=== PATIENT | female | born 1985 | race African-American/Black ===

== ENCOUNTER 2018-05-13 14:00 | Inpatient (IN) | payer BC, OTHER ==
[2018-05-16] MEDS ORDERED: morphine SULFATE/Preservative Free 0.5 MG/ML (1cc Syringe) ONE (08:17)
[2018-05-16] MEDS ORDERED: BUPIVACAINE 0.75% IN DEXTROSE/PF 2ML AMPULE NR ONE (08:24)
--- NOTE | 2018-05-16 09:25 | HP ---
Past Medical History - Primary Care Physician PCP:: Antonio Pinto - Admission Chief Complaint: 33yo P0 with at EGA 39w3d and large fibroids with unstable lie admitted for preimary C/S. History of Present Illness: Pt with multiple large fibroids, including a large ABRAHAM anterior fibroid, preventing descent. Prior h/o anemia- corrected. 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 DIRECTOR: No: Alzheimer's, CVA, Dementia, Migraine, Multiple Sclerosis, Peripheral Neuropathy, Parkinson's, Seizure, Syncope, TIA, Vertigo, Other Cardiovascular: No: AFIB, Aneurysm, Aortic Insufficiency, Aortic Stenosis, CAD, CHF, Deep Vein Thrombosis, HTN, Hyperlipdemia, MD, Mitral Insufficiency, Mitral Stenosis, Murmur, Pulmonary Hypertension, Other Pulmonary: No: Asthma, Bronchitis, Cancer, COPD, O2 Dependent, Pneumonia, Previously Intubated, Pulmonary Embolus, Pulmonary Fibrosis, Sleep Apnea, Other Gastrointestinal: No: Ascites, Cancer, Constipation, Crohn's Disease, Diverticulitis, Diverticulosis, Esophageal Varices, Gastritis, GERD, GI Bleed, Hemorrhoids, Hiatal Hernia, Inflamatory Bowel Disease, Irritable Bowel Disease, Pancreatitis, Peptic Ulcer Disease, Ulcerative Colitis, Other Hepatobiliary: No: Cirrhosis, Cholelithiasis, Cholecystitis, Choledocholithiasis , Hepatitis A, Hepatitis B, Hepatitis C, Other Renal/: No: Renal Failure, Renal Inusuff, BPH, Cancer, Hematuria, Hemodialysis , Neurogenic Bladder, Renal Calculi, UTI, Other Reproductive: Yes: Fibroids ...Para: 0 ... Weeks Gestation by Dates: 39.3 Heme/Onc: Yes: Anemia Infectious Disease: No: AIDS, C-Diff, Herpes Zoster, HIV, MRSA, STD's, Tuberculosis, VREF, Other Psych: No: Addictions, Anxiety, Bipolar, Depression, Panic, Psychosis, Schizophrenia, Other Musculoskeletal: No: Bursitis, Chronic low back pain, Hemiparesis, Hemiplegia, Osteoarthritis, Paraplegia, Other Rheumatology: No: Fibromyalgia, Gout, Lupus, Rheumatoid Arthritis, Sarcoidosis, Vasculitis, Other ENT: No: Allergic Rhinitis, Sinusitis, Other Endocrine: No: Manor's Disease, Ceci's Disease, Diabetes Insipidus, Diabetes Mellitus, Hyperparathyroidism, Hyperthyroidism, Hypothyroidism, Osteopenia, SIADH, Other Dermatology: No: Basal Cell, Cellulitis, Eczema, Melanoma, Psoriasis, Squamous Cell, Other - Past Surgical History Hx Myomectomy: No Hx Transabdominal Cerclage: No Additional Surgical History: Laparoscopic left ovarian cystectomy, ablation of endometrium, NINA (10/2014). 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 History of Recent Travel: No Home Medications - Allergies Allergies/Adverse Reactions: Allergies Allergy/AdvReac Type Severity Reaction Status Date / Time soy Allergy Severe THROAT ITCH Verified 02/17/18 10:39 NUTS Allergy Severe SWELLING, Uncoded 02/17/18 10:39 DIFF BREATHING - Home Medications Home Medications: Ambulatory Orders Iron Sucrose Injection [Venofer Injection -] 1 infus.bot IVPB WEEKLY 02/17/18 Vitamins (Sjr) - 1 tab PO DAILY 02/17/18 Family Disease History - Family Disease History Family History: Unremarkable Review of Systems - Review of Systems Constitutional: reports: No Symptoms Eyes: reports: No Symptoms HENT: reports: No Symptoms Neck: reports: No Symptoms Cardiovascular: reports: No Symptoms Respiratory: reports: No Symptoms Gastrointestinal: reports: No Symptoms Genitourinary: reports: No Symptoms Breasts: reports: No Symptoms Reported Musculoskeletal: reports: No Symptoms Integumentary: reports: No Symptoms Neurological: reports: No Symptoms Endocrine: reports: No Symptoms Hematology/Lymphatic: reports: No Symptoms Pain Intensity: 0 Physical Exam - Maternity Constitutional: Yes: Well Nourished, No Distress, Calm Eyes: Yes: WNL, Conjunctiva Clear HENT: Yes: WNL, Atraumatic, Normocephalic Neck: Yes: WNL, Supple, Trachea Midline Cardiovascular: Yes: WNL, Regular Rate and Rhythm Lungs: Clear to auscultation, Normal air movement - Abdominal Exam/OB Fundal Height: 40 Number of Fetuses: Single Presentation: Vertex, Oblique Contractions: No Heart Rate (range): 130 Heart Rate Location: Midline Category: I Accelerations: Non-Uniform Decelerations: None - Vaginal Exam/OB Vaginal Bleediing: No Speculum Exam: No - Physical Exam Musculoskeletal: Yes: WNL Extremities: Yes: WNL Edema: No Integumentary: Yes: WNL Deep Tendon Reflex Grade: Normal +2 ...Motor Strength: WNL Psychiatric: Yes: WNL, Alert, Oriented Hemorrhage Risk Assessment - Risk Factors Medium Risk Factors: Yes: Large myomas High Risk Factors: Yes: None Risk Score: 1 Risk Level: Medium Risk Imaging - Results Ultrasound: Report Reviewed, Image Reviewed Assessment/Plan 33yo P0 with at EGA 39w3d and large fibroids with unstable lie admitted for preimary C/S. We discussed the risks and benefits of C/S at length , including but not limited to scarring, pain, bleeding, infection, injury to underlying organs and structures, need for additional surgery to repair/treat any problems or complications, complications/injuries, etc. We specifically reviewed the risks of alternative uterine incisions, hemorrhage, hysterectomy, blood transfusion, etc. The pt verbalized her understanding and requested to proceed with surgery. The pt is aware that all surgeries have risks and no guarantees can be provided.
[2018-05-16 09:32] VITALS: BMI 27.8
[2018-05-16] MEDS ORDERED: ELECTROLYTE-148 SOLN 1,000 ML IV SCH (09:45)
[2018-05-16] MEDS ORDERED: ceFAZolin SODIUM 1 GM VIAL IVPB ONE (10:25)
[2018-05-16] MEDS ORDERED: ceFAZolin SODIUM 1 GM VIAL ONE ×2 (10:35→17:54)
[2018-05-16] MEDS ORDERED: OXYTOCIN 10 UNITS/ML VIAL ONE ×2 (10:59→12:21)
[2018-05-16] MEDS ORDERED: BUPIVACAINE HCL/PF 0.5% (5MG/ML) 10 ML VIAL ONE (11:34)
[2018-05-16] MEDS ORDERED: KETAMINE HCL 200 MG/20 ML VIAL ONE (11:53)
[2018-05-16] MEDS ORDERED: MIDAZOLAM HCL 2 MG/2 ML SINGLE DOSE VIAL ONE (11:54)
[2018-05-16] MEDS ORDERED: BENZOIN TINCTURE SWABSTICK TP ONE (12:01)
--- NOTE | 2018-05-16 12:22 | OP ---
Operative Note - Note: Operative Date: 05/16/18 Pre-Operative Diagnosis: at EGA 39w2d. Large fibroid uterus. Unstable lie Operation: Primary high transverse C/S. Myomectomy. Excision of Left paratubal cyst Findings: 1. Bulky gravid uterus with multiple fibroids 2. Large ABRAHAM anterior fibroid (replacing ABRAHAM) 3. Several smaller uterine fibroids throughout 4. Left paratubal/para-ovarian cyst 5. Ovaries difficult to see but appeared normal. Post-Operative Diagnosis: Same as Pre-op Surgeon: Antonio Pinto Tar Chaser: Alon Lundberg Anesthesiologist/ACETYLENE GAS COMPRESSOR: Bonnie Wiggins Anesthesia: Spinal, Epidural Specimens Removed: Placenta. Uterine myoma. left paratubal cyst Estimated Blood Loss (mls): 1,000 Drains & Tubes with Location: Gates Cath Drains, Volume Out (mls): 400 Blood Volume Replaced (mls): 0 Fluid Volume Replaced (mls): 1,000 Operative Report Dictated: Yes
[2018-05-16] MEDS ORDERED: METHYLERGONOVINE MALEATE 0.2 MG/1 ML AMP IM PRN (12:24)
[2018-05-16] MEDS ORDERED: WITCH HAZEL 50% (TUCKS) 40 PAD/JAR PAD TP PRN (12:24)
[2018-05-16] MEDS ORDERED: oxyCODONE HCL 5 MG TABLET PO PRN (12:24)
[2018-05-16] MEDS ORDERED: BENZOCAINE 20% 57 GM BOTTLE TP PRN (12:24)
[2018-05-16] MEDS ORDERED: SENNOSIDES/DOCUSATE COMBO (SENNA PLUS) TABLET (UD) PO PRN (12:24)
[2018-05-16 12:26] LABS: ARTERIAL BLOOD GAS PCO2 53.5 mmHg (35-45); ARTERIAL BLOOD GAS pH 7.25 (7.35-7.45)
[2018-05-16] MEDS ORDERED: CITRIC ACID/SODIUM CITRATE 30 ML UNIT-DOSE CUP PO ONE (12:26)
[2018-05-16 12:27] LABS: ARTERIAL BLD GAS O2 SATURATION 36.1 % (90-98.9); ARTERIAL BLOOD GAS BASE EXCESS -5.4 meq/l (-2-2)
[2018-05-16] MEDS ORDERED: OXYTOCIN 20 UNITS in 0.9% NS 20 UNIT/1,000 ML INFUS.BAG IV SCH (12:30)
[2018-05-16] MEDS ORDERED: ONDANSETRON 4 MG/2 ML VIAL IVPUSH PRN ×2 (12:34)
[2018-05-16 12:35] LABS: ARTERIAL BLOOD GAS PO2 18.1 mmHg (80-100)
[2018-05-16 12:36] LABS: VENOUS PH 7.23 (7.32-7.42)
[2018-05-16 12:43] LABS: VENOUS PO2 18.5 mmHg (28-48)
[2018-05-16] MEDS ORDERED: TUBERCULIN PPD 5 TU/0.1ML SYRINGE (IN PATIENT USE ONLY) ID ONE (14:30)
[2018-05-16] MEDS: IBUPROFEN 800 MG/8 ML IJ IVPB PRN (14:43)
[2018-05-16] MEDS ORDERED: DEXTROSE 5%-WATER - 50 ML IVPB ONE (17:54)
[2018-05-16] MEDS: CEFAZOLIN 1 GM in DEXTROSE 5%-WATER - 50 ML IVPB SCH (18:01)
--- NOTE | 2018-05-16 20:25 | OP ---
DATE OF OPERATION: 05/16/2018 PREOPERATIVE DIAGNOSIS: at estimated gestational age of 39 weeks 2 days, large fibroid uterus, unstable lie. POSTOPERATIVE DIAGNOSIS: at estimated gestational age of 39 weeks 2 days, large fibroid uterus, unstable lie, delivered. PROCEDURE: Primary high transverse section, myomectomy, excision of left paratubal/paraovarian cyst. SURGEON: Antonio Pinto MD BOOM MASTER: Alon Lundberg MD ANESTHESIOLOGIST: Bonnie Wiggins MD ANESTHESIA: Spinal epidural. COMPLICATIONS: None. ESTIMATED BLOOD LOSS: 1000 mL. URINE OUTPUT: 400 mL of clear urine at the end of the procedure. IV FLUIDS: 1000 mL. PATHOLOGY: Placenta, uterine myoma, left paratubal/paraovarian cyst. FINDINGS: Examination prior to section revealed an enlarged, bulky, gravid uterus with multiple fibroids. A large fibroid was palpable on a vaginal exam on the lower uterine segment anteriorly. head was not palpable on the vaginal exam. On Arsenio's maneuver, the head was noted to be on the left maternal side in the left lower quadrant. During surgery, a bulky, gravid uterus was noted with multiple fibroids. There was a large anterior fibroid in the lower uterine segment underneath the bladder completely replacing and displacing lower uterine segment. There were multiple small uterine fibroids throughout the uterus. Live was noted to be in oblique presentation with the head maternal left delivered from vertex presentation. No meconium in amniotic fluid. Apgars 9/9. The ovaries were difficult to visualize, however, appeared to be within normal limits. DESCRIPTION OF PROCEDURE: The patient was met preoperatively. Risks, benefits , and alternatives of surgery were reviewed in detail. All questions were answered. The patient was then brought to the OR with the IV running. She was placed on the surgical table in a sitting position. Epidural anesthesia was achieved without difficulty. The patient was then placed in a supine position with a leftward tilt. The patient was then examined under anesthesia with the findings as described above. A Gates catheter was introduced inside the bladder and left to drain to gravity. The patient was then prepped and draped in a usual sterile fashion. A time-out procedure was conducted as per standard protocol. The surgeons then proceeded with the operation. A transverse lower abdominal incision was made with a knife. The incision was carried down to the level of the fascia. Good hemostasis was maintained. The fascia was incised in the midline, and the incision was extended bilaterally using Trammell scissors. The decision was made to proceed with a Maylard abdominal incision. The rectus muscles were then transected using a cautery device. The inferior epigastric blood vessels were isolated, clamped, cut, and suture ligated bilaterally with good hemostasis. The peritoneum was identified and entered sharply. The peritoneal incision was then extended bilaterally using Metzenbaum scissors. At that point, the retractors were used to visualize the uterus. The lower uterine segment was replaced by a large anterior fibroid underneath the bladder. The decision was then made to proceed with the high transverse incision to avoid multiple other fibroids in the uterus. The uterine incision was made transversely with a knife. The incision was carried down to the amniotic cavity. Once the uterine cavity was entered, the uterine incision was extended transversely using bandage scissors. The baby was delivered from vertex presentation. The mouth and nose were suctioned. The baby was delivered without complications. The baby was crying spontaneously. The umbilical cord was clamped and cut, and the baby was handed to the awaiting glass bender. The baby was delivered manually without complications. The uterine cavity was cleared of all clots and debris using laparotomy laps. The uterine myometrium was then repaired using a 0 Biosyn suture in multiple layers. Once the uterine myometrium was repaired, good hemostasis was observed. In order to close the uterine incision, a 4-cm myoma had to be removed to allow for better approximation and hemostasis. A myomectomy was performed without complications.The top layer and uterine serosa were closed using a running Biosyn suture with good hemostasis and approximation. The operative site was irrigated with copious amounts of normal saline. Normal saline was aspirated, and good hemostasis was confirmed. Examination of fallopian tubes revealed a left paratubal/paraovarian cyst. The cyst was excised with good hemostasis. The ovaries were difficult to visualize because they were displaced by multiple fibroids; however, the ovaries appeared to be within normal limits. Once again, the operative site was surveyed and noted to have good hemostasis. The abdominal peritoneum was then closed using a 2-0 chromic suture. The fascia was then closed using a 0 Vicryl suture with good hemostasis and approximation. The subcutaneous tissues and Marisela fascia were approximated using several interrupted 0 Vicryl sutures. The skin was closed using a 4-0 Vicryl suture with a subcutaneous stitch. Sponge, lap, and instrument counts were correct. The patient was tolerated the procedure well and was transferred to the recovery room in stable condition and awake. Yessi [id number] MTDD
[2018-05-17] MEDS ORDERED: ceFAZolin SODIUM 1 GM VIAL ONE ×2 (01:06→08:50)
[2018-05-17] MEDS ORDERED: DEXTROSE 5%-WATER - 50 ML IVPB ONE ×2 (01:06→08:50)
[2018-05-17] MEDS: CEFAZOLIN 1 GM in DEXTROSE 5%-WATER - 50 ML IVPB SCH ×2 (01:08→09:11)
[2018-05-17] MEDS: IBUPROFEN 800 MG/8 ML IJ IVPB PRN (04:19)
[2018-05-17 07:46] LABS: BASO % 0.2 % (0-2.0); EOS % 1.9 % (0-4.5); HEMATOCRIT 30.4 % (32.4-45.2); HEMOGLOBIN 10.2 GM/dL (10.7-15.3); LYMPH % 7.7 % (8-40); MCH 30.7 pg (25.7-33.7); MCHC 33.4 g/dl (32.0-36.0); MEAN CELL VOLUME 91.6 fl (80-96); MEAN PLT VOLUME 9.2 fl (7.5-11.1); NEUT % 83.2 % (42.8-82.8); PLATELET COUNT 134 K/MM3 (134-434); RBC 3.32 M/mm3 (3.60-5.2); RDW 14.6 % (11.6-15.6); WHITE BLOOD COUNT 9.5 K/mm3 (4.0-10.0)
--- NOTE | 2018-05-17 08:49 | PN ---
Progress Note, Physician Chief Complaint: s/p c section under spinal anesthesia. epidural catheter placed as well History of Present Illness: post op day one. it was not clear whether the epidural was functioning properly during the surgery, had to give deep sedation at the end of the surgery. - Current Medication List Current Medications: Active Medications Acetaminophen (Tylenol -) 650 mg PO Q4H PRN PRN Reason: FEVER Benzocaine (Americaine 20% Richards -) 1 spray TP PRN PRN PRN Reason: Pain - Topical Bisacodyl (Dulcolax Suppository -) 10 mg RC PRN PRN PRN Reason: CONSTIPATION Diphenhydramine HCl (Benadryl Injection -) 25 mg IVPUSH Q4H PRN PRN Reason: Pruritis Parenteral Electrolytes (Plasma-Lyte 148 -) 1,000 mls @ 125 mls/hr IV ASDIR [facility] Last Admin: 05/16/18 08:30 Dose: 125 mls/hr Cefazolin Sodium 1 gm/ (Dextrose) 50 mls @ 100 mls/hr IVPB Q8H-IV ALEC Stop: 05/17/18 10:29 Last Admin: 05/17/18 01:08 Dose: 100 mls/hr Oxytocin/Sodium Chloride (Normal Saline+20 Units Oxytocin -) 20 unit in 1,000 mls @ 125 mls/hr IV ASDIR [facility] Ibuprofen (Motrin -) 600 mg PO Q4H PRN PRN Reason: PAIN LEVEL 1 - 3 Ibuprofen (Caldolor Injection -) 800 mg IVPB Q8H PRN PRN Reason: PAIN LEVEL 1-5 Last Admin: 05/17/18 04:19 Dose: 800 mg Methylergonovine Maleate (Methergine Injection -) 0.2 mg IM Q4H PRN PRN Reason: Excessive Bleeding (L&D) Ondansetron HCl (Zofran Injection) 4 mg IVPUSH Q6H PRN PRN Reason: NAUSEA AND/OR VOMITING Ondansetron HCl (Zofran Injection) 4 mg IVPUSH Q4H PRN PRN Reason: NAUSEA Oxycodone HCl (Roxicodone -) 5 mg PO Q4H PRN PRN Reason: PAIN LEVEL 4 - 6 Multivit/Folic Acid/Iron ( Vitamins (Sjr) -) 1 tab PO DAILY [facility] Senna/Docusate Sodium (Pericolace -) 2 tablet PO HS PRN PRN Reason: CONSTIPATION Simethicone (Mylicon -) 80 mg PO Q4H PRN PRN Reason: GAS Witch Alba/Glycerin (Tucks Pads -) 1 pad TP PRN PRN PRN Reason: Pain - Topical - Objective Vital Signs: Vital Signs Temperature 98 F 05/17/18 06:00 Pulse Rate 87 05/17/18 06:00 Respiratory Rate 20 05/17/18 06:00 Blood Pressure 104/52 L 05/17/18 06:00 O2 Sat by Pulse Oximetry (%) 100 05/16/18 13:15 Constitutional: Yes: Well Nourished Cardiovascular: Yes: WNL Respiratory: Yes: WNL Gastrointestinal: Yes: WNL Labs: CBC, BMP 05/17/18 07:00 Assessment/Plan Complained of some mild nausea overnight, now resolved, pain controlled, ambulating, no adverse effect of anesthetic, dept of anesthesia will sign off case at this time
[2018-05-17] MEDS: PRENATAL VITAMINS W/ FOLIC ACID TABLET (FP) PO SCH (10:00)
--- NOTE | 2018-05-17 11:17 | PN ---
Post Progress Note - Subjective Subjective: Patient without acute complaints. Reports tolerating oral intake without nausea or vomiting. Ambulating without dizziness. Denies fevers or chills. Pain well controlled with oral pain medication. Not Passing flatus and did not void yet. Post Day: 1 Type of Delivery: Primary C/S Vital Signs: Vital Signs Temperature 97.0 F L 05/17/18 10:00 Pulse Rate 88 05/17/18 10:00 Respiratory Rate 20 05/17/18 10:00 Blood Pressure 102/50 L 05/17/18 10:00 O2 Sat by Pulse Oximetry (%) 100 05/16/18 13:15 Breast Exam: Yes: Soft Uterus: Yes: Fundus Firm, Fundus above umbilicus Incision: Yes: Dressing dry and intact Abdomen/GI: Yes: Abdomen soft Lochia: Yes: Rubra Lochia, amount: Small Extremities: Yes: Calves non-tender - Labs Labs: CBC WBC 9.5 K/mm3 (4.0-10.0) 05/17/18 07:00 RBC 3.32 M/mm3 (3.60-5.2) L 05/17/18 07:00 Hgb 10.2 GM/dL (10.7-15.3) L 05/17/18 07:00 Hct 30.4 % (32.4-45.2) L D 05/17/18 07:00 MCV 91.6 fl (80-96) 05/17/18 07:00 MCH 30.7 pg (25.7-33.7) 05/17/18 07:00 MCHC 33.4 g/dl (32.0-36.0) 05/17/18 07:00 RDW 14.6 % (11.6-15.6) 05/17/18 07:00 Plt Count 134 K/MM3 (134-434) 05/17/18 07:00 MPV 9.2 fl (7.5-11.1) 05/17/18 07:00 Absolute Neuts (auto) 7.9 K/mm3 (1.5-8.0) 05/17/18 07:00 Neutrophils % 83.2 % (42.8-82.8) H 05/17/18 07:00 Lymphocytes % 7.7 % (8-40) L D 05/17/18 07:00 Monocytes % 7.0 % (3.8-10.2) 05/17/18 07:00 Eosinophils % 1.9 % (0-4.5) D 05/17/18 07:00 Basophils % 0.2 % (0-2.0) 05/17/18 07:00 Nucleated RBC % 0 % (0-0) 05/17/18 07:00 Assessment/Plan 33yo P 1 now s/p high transverse c/s and myomectomy due to large fibroids, malpresentation 1. Doing well 2. VSS, Afebrile, no evidance of acute blood loss 3. Rh positive status, no rhogam indicated. 4. Encourage ambulation 5. Encorage Insentive spirometer 6. Will follow voiding trial 7. Continue routine care
[2018-05-17] MEDS ORDERED: BISACODYL 10 MG SUPP.RECT RC PRN (12:24)
[2018-05-17] MEDS: ACETAMINOPHEN 325 MG TABLET (FP) PO PRN (15:37)
[2018-05-17] MEDS: SIMETHICONE 80 MG TAB.CHEW (FP) PO PRN (15:38)
[2018-05-17] MEDS: IBUPROFEN 600 MG TABLET (FP) PO PRN (15:38)
[2018-05-18] MEDS: SIMETHICONE 80 MG TAB.CHEW (FP) PO PRN ×2 (08:01→18:17)
[2018-05-18] MEDS: ACETAMINOPHEN 325 MG TABLET (FP) PO PRN ×2 (08:01→18:17)
[2018-05-18] MEDS: IBUPROFEN 600 MG TABLET (FP) PO PRN ×2 (08:01→18:18)
--- NOTE | 2018-05-18 08:21 | PN ---
Post Progress Note - Subjective Subjective: No complaints. Ambulating. No nausea or vomiting. Passing flatus. Type of Delivery: Primary C/S Vital Signs: Vital Signs Temperature 98.4 F 05/17/18 21:00 Pulse Rate 81 05/17/18 21:00 Respiratory Rate 20 05/17/18 21:00 Blood Pressure 112/58 L 05/17/18 21:00 O2 Sat by Pulse Oximetry (%) 100 05/16/18 13:15 Breast Exam: Yes: Soft Uterus: Yes: Fundus Firm Incision: Yes: Sutures intact Abdomen/GI: Yes: Abdomen soft, Tolerating PO Lochia: Yes: Rubra Lochia, amount: Small Extremities: Yes: Calves non-tender Perineum: Yes: Intact Activity: Ambulating - Labs Labs: CBC WBC 9.5 K/mm3 (4.0-10.0) 05/17/18 07:00 RBC 3.32 M/mm3 (3.60-5.2) L 05/17/18 07:00 Hgb 10.2 GM/dL (10.7-15.3) L 05/17/18 07:00 Hct 30.4 % (32.4-45.2) L D 05/17/18 07:00 MCV 91.6 fl (80-96) 05/17/18 07:00 MCH 30.7 pg (25.7-33.7) 05/17/18 07:00 MCHC 33.4 g/dl (32.0-36.0) 05/17/18 07:00 RDW 14.6 % (11.6-15.6) 05/17/18 07:00 Plt Count 134 K/MM3 (134-434) 05/17/18 07:00 MPV 9.2 fl (7.5-11.1) 05/17/18 07:00 Absolute Neuts (auto) 7.9 K/mm3 (1.5-8.0) 05/17/18 07:00 Neutrophils % 83.2 % (42.8-82.8) H 05/17/18 07:00 Lymphocytes % 7.7 % (8-40) L D 05/17/18 07:00 Monocytes % 7.0 % (3.8-10.2) 05/17/18 07:00 Eosinophils % 1.9 % (0-4.5) D 05/17/18 07:00 Basophils % 0.2 % (0-2.0) 05/17/18 07:00 Nucleated RBC % 0 % (0-0) 05/17/18 07:00 Assessment/Plan 33yo P1 s/p high Transverse C/S and multiple fibroids, doing well stable, afebrile. Asymptomatic for anemia care instructions reviewed. Continue routine postop care. Ambulation encouraged.
--- NOTE | 2018-05-18 08:24 | DS ---
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 Vital Signs: Vital Signs Temperature 98.4 F 05/17/18 21:00 Pulse Rate 81 05/17/18 21:00 Respiratory Rate 20 05/17/18 21:00 Blood Pressure 112/58 L 05/17/18 21:00 O2 Sat by Pulse Oximetry (%) 100 05/16/18 13:15 Constitutional: Yes: Well Nourished, No Distress, Calm Eyes: Yes: WNL, Conjunctiva Clear HENT: Yes: WNL, Atraumatic, Normocephalic Neck: Yes: WNL, Supple, Trachea Midline Cardiovascular: Yes: WNL, Regular Rate and Rhythm Respiratory: Yes: WNL, Regular, CTA Bilaterally Gastrointestinal: Yes: WNL, Normal Bowel Sounds, Soft ...Rectal Exam: Yes: Deferred Renal/: Yes: WNL Internal Exam Deferred: Yes ....Post : Yes: Uterus firm, Uterus non-tender, Slight lochia rubra Breast(s): Yes: WNL Musculoskeletal: Yes: WNL Extremities: Yes: WNL Edema: No Edema: LLE: Trace, RLE: Trace Integumentary: Yes: WNL Wound/Incision: Yes: Clean/Dry, Well Approximated, Sutures Intact, Steri Strips , Open to air Neurological: Yes: WNL, Alert, Oriented ...Motor Strength: WNL Psychiatric: Yes: WNL, Alert, Oriented Labs: CBC, BMP 05/17/18 07:00 Delivery - Delivery Section: Primary, High Transverse Type of Anesthesia: Epidural Episiotomy/Laceration: None EBL (cc): 1,000 Delivery, Single - Stages of Labor Date of Delivery: 05/16/18 Time of Delivery: 10:59 Time Placenta Delivered: 11:00 Placenta: Yes: Manual Removal, Normal Configuration - Condition of Assembly Inspector/Women'S Ministry Director Present: Yes Name: Leo Saucedo Infant Gender: Male Weight: 3.317 kg Position: Left, OT Total Hours ROM (Hrs/Mins): 2mins - 1 Minute Total Score: 9 5 Minutes Total Score: 9 - [place] Feeding Plan Initial Plan: Exclusive throughout hospitalization Discharge Summary Reason For Visit: at EGA 39w3d Unstable lie Uterine fibroids Procedures: Principal: Primary high transverse C/S Other Procedures: Myomectomy. Excision of left paratubal cyst Hospital Course: Normal recovery Condition: Good - Instructions Diet, Activity, Other Instructions: Physical activity Resume your normal everyday activity as tolerated no heavy lifting or exercise until seen by your surgeon. You may walk unlimited arik of and climb stairs. You may resume driving the car when you feel safe and comfortable behind the wheel. No sexual activity as instructed. Wound care If you have a bandage, leave it on, and keep dry for 48-72 hours. After that time discard the outer bandage. If they are tapes on the skin under the out of bandage leave them in place. They will peel off in the next 7 to 10 days. Do Not Peel them off. You may shower the day after surgery. If there are tapes present on the skin, you may shower over them. Diet There are no dietary restrictions. Eat healthy, high-fiber foods. Drink 6 to 8 glasses of liquid each day. This will assist in keeping your bowels are regular. Pain management You may take Tylenol or acetaminophen or Ibuprofen (for example, Motrin, Advil etc.) from my pain prescription medication is ordered should be taken as prescribed for moderate to severe pain. Call MD for any of the following: Severe pain not relieved by medication Fever of 101 or higher Excessive bleeding or drainage on dressing Inability to urinate Referrals: Antonio Pinto MD [Staff Physician] - Disposition: HOME - Home Medications Comprehensive Discharge Medication List: Ambulatory Orders Vitamins (Sjr) - 1 tab PO DAILY 02/17/18
[2018-05-18] MEDS: PRENATAL VITAMINS W/ FOLIC ACID TABLET (FP) PO SCH (10:50)
--- NOTE | 2018-05-18 18:46 | PATH ---
Surgical Pathology Report Patient Name: ZAYRA NOONAN [facility]. Rec. #: [id number] /Age/Gender: 1985 (Age: 33) / F Account: [id number] Location: [facility] OBS/ASSET PROTECTION LEAD Taken: 05/16/2018 Received: 05/17/2018 Reported: 05/18/2018 Physicians: Antonio Pinto M.D. Specimen(s) Received PLACENTA Clinical History , 39.4 weeks, history of HPV, large uterine fibroids Previous surgery: Endometriosis with ablation, lysis of adhesions, left ovarian cystectomy 10/2015, left knee surgery 04/2001 Final Diagnosis PLACENTA, SECTION: 553 G THIRD TRIMESTER PLACENTA WITH TRIVASCULAR UMBILICAL CORD AND FOCAL ACUTE MILD CHORIOAMNIONITIS. Electronically Signed Althea Degroot M.D. Gross Description The specimen is received fresh labeled "placenta" is a 553 gram, 17 x 17 x 2 cm. placenta with attached membranes and umbilical cord. The attached membranes are yellow-tinged, opaque and insert marginally. The umbilical cord measures 35 cm in length and averages 1.5 cm in diameter. The cord inserts marginally. No true knots or strictures are identified. Cut surface of the umbilical cord reveals 3 vessels. The surface is tavera-blue with minimal fibrin deposition and appropriate caliber vessels. The maternal surface is red-brown with focal defects. Sectioning reveals red-brown, spongy parenchyma. No lesions are identified. [employer] sections are submitted in three cassettes as follows: 1- membrane rolls and umbilical cord; 2-3- full thickness sections of placenta. MLSZ/05/17/2018 sanml/05/17/2018
[2018-05-19] MEDS: IBUPROFEN 600 MG TABLET (FP) PO PRN ×3 (02:36→20:58)
[2018-05-19] MEDS: SIMETHICONE 80 MG TAB.CHEW (FP) PO PRN ×3 (02:37→20:57)
[2018-05-19] MEDS: ACETAMINOPHEN 325 MG TABLET (FP) PO PRN ×3 (02:37→20:57)
[2018-05-19 07:53] LABS: BASO % 0.3 % (0-2.0); EOS % 3.2 % (0-4.5); HEMOGLOBIN 8.8 GM/dL (10.7-15.3); LYMPH % 16.1 % (8-40); MCH 30.6 pg (25.7-33.7); MCHC 33.9 g/dl (32.0-36.0); MEAN CELL VOLUME 90.4 fl (80-96); MEAN PLT VOLUME 8.9 fl (7.5-11.1); MONO % 7.2 % (3.8-10.2); NEUT % 73.2 % (42.8-82.8); PLATELET COUNT 136 K/MM3 (134-434); RBC 2.87 M/mm3 (3.60-5.2); RDW 14.5 % (11.6-15.6); WHITE BLOOD COUNT 6.1 K/mm3 (4.0-10.0)
--- NOTE | 2018-05-19 09:04 | PN ---
Post Progress Note - Subjective Subjective: Patient without acute complaints. Reports tolerating oral intake without nausea or vomiting. Ambulating without dizziness. Denies fevers or chills. Pain well controlled with oral pain medication. without difficulty. Passing flatus. Post Day: 3 Type of Delivery: Primary C/S Vital Signs: Vital Signs Temperature 98.5 F 05/18/18 22:32 Pulse Rate 79 05/18/18 22:32 Respiratory Rate 20 05/18/18 22:32 Blood Pressure 105/50 L 05/18/18 22:32 O2 Sat by Pulse Oximetry (%) 100 05/16/18 13:15 Breast Exam: Yes: Engorged, Other (engorgement R axilla, ectopic breast tissue) Uterus: Yes: Fundus Firm, Fundus above umbilicus (+ fibroid) Incision: Yes: Sutures intact. No: Redness, Oozing Abdomen/GI: Yes: Abdomen soft, Tender (mild incisional), Passing flatus, Tolerating PO. No: Abdominal Distention Lochia: Yes: Serosa Lochia, amount: Small Extremities: Yes: Calves non-tender. No: Edema Activity: Ambulating - Labs Labs: CBC WBC 6.1 K/mm3 (4.0-10.0) 05/19/18 06:55 RBC 2.87 M/mm3 (3.60-5.2) L 05/19/18 06:55 Hgb 8.8 GM/dL (10.7-15.3) L 05/19/18 06:55 Hct 26.0 % (32.4-45.2) L 05/19/18 06:55 MCV 90.4 fl (80-96) 05/19/18 06:55 MCH 30.6 pg (25.7-33.7) 05/19/18 06:55 MCHC 33.9 g/dl (32.0-36.0) 05/19/18 06:55 RDW 14.5 % (11.6-15.6) 05/19/18 06:55 Plt Count 136 K/MM3 (134-434) 05/19/18 06:55 MPV 8.9 fl (7.5-11.1) 05/19/18 06:55 Absolute Neuts (auto) 4.5 K/mm3 (1.5-8.0) 05/19/18 06:55 Neutrophils % 73.2 % (42.8-82.8) 05/19/18 06:55 Lymphocytes % 16.1 % (8-40) D 05/19/18 06:55 Monocytes % 7.2 % (3.8-10.2) 05/19/18 06:55 Eosinophils % 3.2 % (0-4.5) 05/19/18 06:55 Basophils % 0.3 % (0-2.0) 05/19/18 06:55 Nucleated RBC % 0 % (0-0) 05/19/18 06:55 Assessment/Plan 33 yo POD # 3 s/p CD, mild asymptomatic anemia, afebrile, vital signs stable, doing well 1. Continue routine postoperative care. 2. Encourage ambulation and incentive spirometer use 3. Continue oral pain medication 4. Encourage ice packs to R axilla support given 5. Anticipate discharge home postoperative day #4
[2018-05-19] MEDS: PRENATAL VITAMINS W/ FOLIC ACID TABLET (FP) PO SCH (09:48)
--- NOTE | 2018-05-19 12:03 | PATH ---
Surgical Pathology Report Patient Name: ZAYRA NOONAN [facility]. Rec. #: [id number] /Age/Gender: 1985 (Age: 33) / F Account: [id number] Location: [facility] OBS/SURVEY ASSOCIATE Taken: 05/16/2018 Received: 05/16/2018 Reported: 05/19/2018 Physicians: Antonio Pinto M.D. Specimen(s) Received A: FIBROID B: LEFT TUBAL CYST Clinical History , fibroid tumor Final Diagnosis A. FIBROID, EXCISION: LEIOMYOMA WITH DEGENERATIVE CHANGE. B. LEFT TUBAL CYST, EXCISION: PARATUBAL CYST. Electronically Signed Keysha Gonzalez M.D. Gross Description A. Received in formalin, labeled "fibroids", is a nodule measuring 3 x 2 x 1.8 cm, weighs 13 grams. Serial section reveals solid, bran cut surfaces with central softening. No hemorrhage is seen grossly. Oleomargarine Maker sections are submitted in three cassettes. B. Received in formalin, labeled "left tube cyst", is a thin-walled cyst with serous fluid measuring 2.3 cm in greatest dimension. The specimen is bisected and entirely submitted in one cassette. __ JULIAN/05/16/2018 lei/05/16/2018
--- NOTE | 2018-05-20 07:41 | PN ---
Progress Note (short form) - Note Progress Note: pod 4 ,doing well, no c/o . no excess vaginal bleeding, had BM, no dizziness CBC, BMP 05/19/18 06:55 abdomen soft, no distension, no cva uterus firm, non tender incision dry, clean , healing well no calf tenderness plan ambulate d/c home, follow up office 1 week
[2018-05-20 09:41] VITALS: BP 119/70; PULSE 69; TEMP 98.4
[2018-05-20] MEDS: IBUPROFEN 600 MG TABLET (FP) PO PRN (09:42)
[2018-05-20] MEDS: SIMETHICONE 80 MG TAB.CHEW (FP) PO PRN (09:42)
[2018-05-20] MEDS: ACETAMINOPHEN 325 MG TABLET (FP) PO PRN (09:42)
[2018-05-20] MEDS: PRENATAL VITAMINS W/ FOLIC ACID TABLET (FP) PO SCH (09:42)
== END 2018-05-20 11:05 | disposition home or self-care (01) | DRG 766 ==
LOC: JLDR 05-16 07:00 → J3W 05-16 13:45
PROVIDERS: ADMIT Obstetrics & Gynecology; ATTEND Obstetrics & Gynecology
PROC: 0UB90ZZ Excision of Uterus, Open Approach (ICD-10-PCS; 2018-05-16)
PROC: 10D00Z1 Extraction of Products of Conception, Low, Open Approach (ICD-10-PCS; principal; 2018-05-16 09:30)
DX: O65.5 Obstructed labor due to abnormality of maternal pelvic organs (principal); O34.13 Maternal care for benign tumor of corpus uteri, third trimester; O32.0XX0 Maternal care for unstable lie, not applicable or unspecified; D25.9 Leiomyoma of uterus, unspecified; O34.83 Maternal care for other abnormalities of pelvic organs, third trimester; N83.8 Other noninflammatory disorders of ovary, fallopian tube and broad ligament; O99.013 Anemia complicating pregnancy, third trimester; D64.9 Anemia, unspecified; Z3A.39 39 weeks gestation of pregnancy; Z37.0 Single live birth
CPT/HCPCS: 36415; 36600; 82803; 85025; 86850; 86900; 86901; 86922; 88304-TC; 88305-TC; 88307-TC; 94760

== ENCOUNTER 2021-01-02 17:03 | Emergency (ER) | payer BC, OTHER ==
[2021-01-02 17:15] VITALS: BP 100/64; PULSE 112; TEMP 99; BMI 25.8
[2021-01-02] MEDS ORDERED: KETOROLAC TROMETHAMINE 30 MG/1 ML VIAL IVPUSH ONE (17:42)
[2021-01-02] MEDS ORDERED: ACETAMINOPHEN 1000 MG/100 ML VIAL (NON FORMULARY) IVPB ONE (17:42)
[2021-01-02] MEDS ORDERED: ACETAMINOPHEN INJECTION 100 ML IVPB ONE (18:19)
[2021-01-02] MEDS ORDERED: KETOROLAC TROMETHAMINE 30 MG/1 ML VIAL ONE (18:19)
[2021-01-02 18:55] LABS: BASO % 0.3 % (0-2.0); HEMATOCRIT 31.3 % (32.4-45.2); HEMOGLOBIN 10.3 GM/dL (10.7-15.3); LYMPH % 7.2 % (8-40); MCH 27.3 pg (25.7-33.7); MEAN CELL VOLUME 82.6 fl (80-96); MEAN PLT VOLUME 8.7 fl (7.5-11.1); MONO % 11.6 % (3.8-10.2); NEUT % 80.9 % (42.8-82.8); PLATELET COUNT 212 K/MM3 (134-434); RBC 3.78 M/mm3 (3.60-5.2); RDW 17.5 % (11.6-15.6); WHITE BLOOD COUNT 10.7 K/mm3 (4.0-10.0)
[2021-01-02 19:14] LABS: EPI CELLS 12 /uL (0-25.1); HYALINE CASTS 1 /uL (0-3.1); PH,URINE 5.5 (5.0-8.0); URINE APPEARANCE CLEAR; URINE BACTERIA 201 /uL (0-1359); URINE BILIRUBIN NEGATIVE (NEGATIVE); URINE COLOR YELLOW; URINE GLUCOSE (UA) NEGATIVE (NEGATIVE); URINE KETONE 2+ (NEGATIVE); URINE LEUK ESTERASE NEGATIVE (NEGATIVE); URINE NITRITE NEGATIVE (NEGATIVE); URINE PROTEIN NEGATIVE (NEGATIVE); URINE RBC 4 /uL (0-23.9); URINE UROBILINOGEN 0.2 mg/dL (0.2-1.0); URINE WBC 7 /uL (0-25.8)
[2021-01-02 19:17] LABS: HCG,QUALITATIVE URINE Negative
[2021-01-02 19:18] LABS: CALCIUM 8.9 mg/dL (8.5-10.1)
[2021-01-02 19:19] LABS: ALBUMIN 3.8 g/dl (3.4-5.0); BLOOD UREA NITROGEN 8.6 mg/dL (7-18)
[2021-01-02 19:22] LABS: CREATININE 0.8 mg/dL (0.55-1.3)
[2021-01-02 19:23] LABS: BILIRUBIN,TOTAL 0.9 mg/dL (0.2-1); TOT PROT 7.8 g/dl (6.4-8.2)
== END 2021-01-02 20:36 | disposition home or self-care (01) ==
LOC: JER 17:03
PROC: 3E033NZ Introduction of Analgesics, Hypnotics, Sedatives into Peripheral Vein, Percutaneous Approach (ICD-10-PCS; principal; 2021-01-02)
PROC: 3E0333Z Introduction of Anti-inflammatory into Peripheral Vein, Percutaneous Approach (ICD-10-PCS; 2021-01-02)
DX: D25.9 Leiomyoma of uterus, unspecified (principal)
CPT/HCPCS: 36415; 76856-TC; 80053; 81003; 84703; 85025; 87086; 99285-25; J0131